=== PATIENT | female | born 1940 | race American Indian/Alaskan Native ===

== ENCOUNTER 2016-12-13 03:43 | Emergency (ER) | payer OTHER ==
[2016-12-13] MEDS ORDERED: ATROVENT IH ONE (04:06)
[2016-12-13] MEDS ORDERED: PROVENTIL IH ONE (04:06)
[2016-12-13] MEDS ORDERED: MAGNESIUM SULFATE 2GM/50ML 50 ML IV ONE (04:06)
--- NOTE | 2016-12-13 04:08 | Emergency Department Report ---
HPI - General Time Seen by Provider: 12/13/16 04:05 - HPI HPI: This is a 76-year-old Afro[place] female who presents to the emergency department by EMS from home with complaint of shortness of breath, wheezing, and a mixed dry and productive cough that has been going on for the past 24 hours. Patient has history of asthma and COPD but is not oxygen dependent at home. She is a tobacco smoker. She tried an albuterol inhaler at home without any relief. She denies any chest pain, fever, nausea, vomiting, back pain or diaphoresis. She denies any history of DE, CVA, PE/DVT. She does not have a primary care doctor. No recent travel or sick contacts at home. ED Past Medical Hx - Medications Home Medications: Home Medications Medication Instructions Recorded Confirmed Last Taken Type ALBUTEROL Inhaler [ProAir HFA 2 puff IH QID PRN #1 inhalation 12/13/16 Unknown Rx Inhaler] Albuterol Sulfate [Albuterol 0.63% 0.63 mg IH Q4H PRN #1 box 12/13/16 Unknown Rx NEBS] predniSONE [Deltasone] 20 mg PO BID #10 tab 12/13/16 Unknown Rx ED Review of Systems ROS: Stated complaint: GENERAL ILLNESS Other details as noted in HPI Comment: All other systems reviewed and negative Constitutional: denies: chills, fever Eyes: denies: eye pain, eye discharge, vision change ENT: denies: ear pain, throat pain Respiratory: cough, shortness of breath, wheezing Cardiovascular: denies: palpitations, edema Gastrointestinal: denies: abdominal pain, nausea, diarrhea Genitourinary: denies: urgency, dysuria, discharge Musculoskeletal: denies: back pain, joint swelling, arthralgia Skin: denies: rash, lesions Neurological: denies: headache, weakness, paresthesias Physical Exam - Physical Exam Physical Exam: GENERAL: The patient is well-developed well-nourished. HEENT: Normocephalic. Atraumatic. Extraocular motions are intact. Patient has moist mucous membranes. Pupils equal reactive to light bilaterally. NECK: Supple. Trachea is midline. CHEST/LUNGS: Mild to moderate wheezing throughout the chest. There is some tachypnea. No accessory muscle use with supplemental oxygen. There is no respiratory distress noted. No conversational dyspnea. HEART/CARDIOVASCULAR: Regular. There is mild tachycardia. There is no gallop rub or murmur. ABDOMEN: Abdomen is soft, nontender. Patient has normal bowel sounds. There is no abdominal distention. SKIN: There is no rash. There is no edema. There is no diaphoresis. NEURO: The patient is awake, alert, and oriented. The patient is cooperative. The patient has no focal neurologic deficits. The patient has normal speech. MUSCULOSKELETAL: There is no tenderness or deformity. There is no limitation range of motion. There is no evidence of acute injury. ED Medical Decision Making - Lab Data Result diagrams: 12/13/16 04:40 12/13/16 04:40 - EKG Data -: EKG Interpreted by Me EKG shows normal: sinus rhythm, axis, intervals (slightly prolonged QTC), QRS complexes, ST-T waves Rate: normal - EKG Data When compared to previous EKG there are: previous EKG unavailable Interpretation: normal EKG (slightly prolonged QTc) - Radiology Data Radiology results: image reviewed interpreted by me: Chest x-ray shows hyperinflated lungs and flattening of the diaphragms consistent with COPD. No obvious pneumonia, pleural effusions. No pneumothorax. - Medical Decision Making This is a 76-year-old female with a history of COPD who continues to smoke who presents to the emergency department with a one-day history of some shortness of breath. She denies any chest pain. Patient had some low pulse ox on room air at home at first but it improved with supplemental oxygen. Chest x-ray was done that does not show any pneumonia, pleural effusion or any acute process. EKG does not show any signs of ST elevation DE or dysrhythmia. Patient had labs that did not show any signs of infection, electrolyte abnormalities, renal insufficiency. She had a negative troponin and a negative d-dimer. Patient was given albuterol, Atrovent, Solu-Medrol and magnesium. Patient was reevaluated multiple times over multiple hours and now says that she is feeling greatly improved. On reevaluation she was has undetectable wheezing and/or bronchospasm. Patient's vitals have greatly improved and there is no longer any tachypnea. There might be mild tachycardia but she just finished multiple albuterol treatments. The supplemental oxygen was discontinued and the patient maintained her oxygenation. Discussed with the patient about the importance of smoking cessation. She says she does have a primary care doctor through the [facility] system. She will be given a refill of her albuterol and be put on a 5 day course of her steroids. She'll return to the emergency department with any worsening of her symptoms or any acute distress. She understands and agrees the plan. - Differential Diagnosis COPD, asthma, pneumonia, PE Critical Care Time: No Critical care attestation.: If time is entered above; I have spent that time in minutes in the direct care of this critically ill patient, excluding procedure time. ED Disposition Clinical Impression: COPD exacerbation, Tobacco abuse Disposition: DISCHARGED TO HOME OR SELFCARE Is pt being admited?: No Does the pt Need Aspirin: No Condition: Stable Instructions: Chronic Obstructive Pulmonary Disease (ED), How to Stop Smoking ( ED) Additional Instructions: Please follow-up with your primary care doctor in the next few days. Return to the emergency department with any worsening of her symptoms or any acute distress. Prescriptions: Albuterol Sulfate [Albuterol 0.63% NEBS] 0.63 mg IH Q4H PRN #1 box PRN Reason: Wheezing predniSONE [Deltasone] 20 mg PO BID #10 tab ALBUTEROL Inhaler [ProAir HFA Inhaler] 2 puff IH QID PRN #1 inhalation PRN Reason: Shortness Of Breath Referrals: PRIMARY CARE, [Primary Care Provider] - 3-5 Days Time of Disposition: 06:15
[2016-12-13 04:52] LABS: Basophils % (Auto) 0.5 % (0.0-1.8); Eosinophils % (Auto) 8.4 % (0.0-4.3); Hematocrit 38.9 % (30.3-42.9); Hemoglobin 12.7 gm/dl (10.1-14.3); Mean Corpuscular HGB Conc 33 % (30-34); Mean Corpuscular Hemoglobin 31 pg (28-32); Mean Corpuscular Volume 96 fl (79-97); Platelet Count 314 K/mm3 (140-440); Red Blood Count 4.07 M/mm3 (3.65-5.03); Red Cell Distribution Width 13.1 % (13.2-15.2); White Blood Count 8.6 K/mm3 (4.5-11.0)
[2016-12-13 05:15] LABS: Anion Gap 16 mmol/L; BUN/Creatinine Ratio 11.66; Blood Urea Nitrogen 7 mg/dL (7-17); Calcium 8.5 mg/dL (8.4-10.2); Carbon Dioxide 27 mmol/L (22-30); Chloride 103.1 mmol/L (98-107); Glucose 118 mg/dL (65-100); Potassium 3.8 mmol/L (3.6-5.0); Sodium 142 mmol/L (137-145)
[2016-12-13 06:07] LABS: ISTAT Base Excess -1; ISTAT HCO3 24.6; ISTAT PCO2 44.5 (35-45); ISTAT PO2 55 (80-105); ISTAT SO2 86; ISTAT TCO2 26
--- NOTE | 2016-12-13 07:49 | XRay Report ---
AP CHEST: HISTORY: Dyspnea AP view of the chest demonstrates a normal mediastinal and cardiac contour with clear lungs and normal bony and soft tissue structures. IMPRESSION: No acute cardiopulmonary process.
[2016-12-13] MEDS ORDERED: DUONEB 0.5 MG-3 MG/3 ML SOLN IH ONE ×3 (09:01→09:21)
[2016-12-13 11:50] VITALS: BP 116/63
== END 2016-12-13 11:49 | disposition home or self-care (01) ==
LOC: ED 03:43
DX: J44.1 Chronic obstructive pulmonary disease with (acute) exacerbation (principal); F17.200 Nicotine dependence, unspecified, uncomplicated
CPT/HCPCS: 36415; 71010; 80048; 82803; 83880; 84484; 85025; 85379; 93005; 93010; 94640; 96365; 96375; 99285; J2930; J3475